=== PATIENT | male | born 1990 | race Caucasian/White ===

== ENCOUNTER 2017-01-10 22:48 | Emergency (ER) | payer SELFPAY ==
[~2017-01-10] VITALS: Ht 180.3 cm; Wt 65.1 kg
[~2017-01-10 22:48] MED LIST: AMOXICILLIN500 M1 PO; BENTYL10 MG PO; FLEXERIL10 MG PO; FLEXERIL5 MG PO; MOTRIN600 MG PO; MOTRIN800 MG PO; PREDNISONE10 M1 PO; TRAMADOL HCL50 MG PO; VICODIN 5-3001 EACH PO; ZOFRAN4 MG PO
[2017-01-10 23:38] LABS: HEMATOCRIT 47.6 % (38.0-50.0); MCH 29.3 PG (29.0-34.0); MCHC 34.9 G/DL (30.0-36.0); MEAN PLAT.VOLUME 9.1 uM^3 (9.0-12.4); PLATELET COUNT 193 K/uL (156-360); RBC DIS.WIDTH-CV 11.9 % (11.8-14.6); RBC DIS.WIDTH-SD 35.8 % (39-53); RED BLOOD COUNT 5.67 M/uL (4.00-5.50); WHITE BLOOD COUNT 9.6 K/uL (4.1-10.2)
[2017-01-10 23:47] LABS: CHLORIDE 103 mEq/L (99-109); POTASSIUM 3.7 mEq/L (3.7-5.4); SODIUM 139 mEq/L (136-147)
[2017-01-10 23:50] LABS: GLUCOSE 75 mg/dL (70-99)
[2017-01-10 23:51] LABS: ANION GAP 10 MEQ/L (2-14); TOTAL BILIRUBIN 0.5 mg/dL (0.0-1.0)
[2017-01-10 23:53] LABS: ALKALINE PHOSPHATASE 76 IU/L (3-129); GFR ESTIMATE (CALCULATED) > 59 mL/min/
[2017-01-10 23:54] LABS: UREA NITROGEN (BUN) 15 mg/dL (9-23)
[2017-01-11 01:40] LABS: CREATINE KINASE 171 IU/L (1-294)
[2017-01-11 02:42] LABS: BILIRUBIN NEGATIVE; BLOOD NEGATIVE; COLOR YELLOW ((YELLOW)); GLUCOSE (STRIP) NEGATIVE; KETONES NEGATIVE; LEUKOCYTES NEGATIVE; NITRITE NEGATIVE; PROTEIN (STRIP) 30; SPECIFIC GRAVITY 1.025 (1.000-1.030); UROBILINOGEN 0.2 MG/DL (0.2-1.0)
[2017-01-11 02:43] LABS: ADD MIUA? NO; UCUL ADDED? NO
[2017-01-11] MEDS ORDERED: ZOFRAN8 MG PO (02:55)
[2017-01-11 03:30] VITALS: BP 112/70
== END 2017-01-11 03:30 | disposition home or self-care (01) ==
LOC: EME 22:48
PROVIDERS: Emergency Medicine
DX: R11.0 Nausea (principal); B34.9 Viral infection, unspecified; E86.0 Dehydration; F17.200 Nicotine dependence, unspecified, uncomplicated
CPT/HCPCS: 80053; 81003; 82310; 82550; 85027; 93005; 99281; 99284